=== PATIENT | female | born 1970 | race Caucasian/White ===

== ENCOUNTER 2016-02-22 11:34 | Emergency (ER) | payer MEDICAID ==
[2016-02-22 11:49] VITALS: TEMP 98.5; BMI 31.0
[2016-02-22 12:23] LABS: AUTOMATED BASOPHIL 0.5 % (0-2); AUTOMATED EOSINOPHIL 1.1 % (0-5); AUTOMATED LYMPH 20.1 % (17-44); AUTOMATED MONOCYTE 7.1 % (3-10); AUTOMATED NEUTROPHIL 71.2 % (45-76); MPV 7.9 fL (7.4-10.4)
[2016-02-22 12:35] LABS: LEUKOCYTES/URINE NEG (NEGATIVE); NITRITE/URINE NEG (NEGATIVE); URINE OCCULT BLOOD 1+ (NEG/TRACE); WBC/URINE 0-2 (0-5)
[2016-02-22] MEDS ORDERED: KETOROLAC TROMETHAMINE 10 MG TAB PO ONE (12:36)
[2016-02-22 12:37] LABS: BLOOD UREA NITROGEN 13 MG/DL (7-17); CALCIUM 9.2 MG/DL (8.4-10.2); CALCULATED OSMOLALITY 277 MOs/Kg (270-290); CHLORIDE 108 mEq/L (98-107); GLUCOSE 94 MG/DL (70-99); SODIUM LEVEL 144 mEq/L (137-146); TOTAL PROTEIN 7.7 G/DL (6.3-8.2)
--- NOTE | 2016-02-22 12:40 | EDPRACDOC ---
- General Information Chief Complaint: Abdominal Pain Stated Complaint: RLQ ABD PAIN Time Seen by Provider: 02/22/16 12:18 Information Source: Patient Mode Of Arrival: Car Home Medications: Home Medications Calcium Carbonate [Calcium] 600 mg PO DAILY 02/22/16 Cyanocobalamin (Vitamin B-12) [Vitamin B-12 (cyanocobalamin)] 1,000 mcg SL DAILY 02/22/16 Ergocalciferol (Vitamin D2) [Vitamin D] 50,000 units PO TU 02/22/16 Hydrocodone Bit/Acetaminophen [Hydrocodon-Acetaminophen 5-325] 1 tab PO Q6 PRN # 10 tab 02/22/16 Ketorolac Tromethamine [Toradol] 10 mg PO Q6H PRN #20 tab 02/22/16 Ondansetron [Zofran Odt] 4 mg PO TID PRN #10 tab.rapdis 02/22/16 Allergies/Adverse Reactions: Allergies Allergy/AdvReac Type Severity Reaction Status Date / Time oxycodone HCl Allergy Nausea/Vomi Verified 08/09/13 07:34 [From OxyContin] ting - History of Present Illness Onset: 4 days HPI: C/o constant RLQ pain with nausea x 4 days with 12 days of menstrual bleeding ( longer than usual), which started heavier than usual and 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 Denies Vaginal sx, change in urine, BM, cp, sob, fever. Med hx = ovarian cyst in her teens. Surgical hx = BTL, csection, back surgery. Sexually active, 1 partner. Pain Location: Reports: RLQ Pain Context: Reports: Spontaneous Pain Severity: Severe Pain Quality: Reports: Sharp Pain Radiation: Reports: No Radiation Last Menstrual Period: 12 days ago - continues : No Adult Abdominal History: Denies: Abdominal Surgery Female Abdominal History: Reports: Abdominal Surgery (c section, BTL) Modifying Factors: improves with: Nothing Female Associated Signs & Symptoms: Reports: Nausea, Vaginal Bleeding Oral Intake: Decreased Urinary Output: Normal ED Past Medical History - History Reviewed Yes Nurses notes reviewed and agree except as marked - Patient Medical History Cardiac History: Reports: Hypertension Psychological History: Denies: Depression Surgical History: Reports: Other (BACK, CSXN) - Social Medical History Smoking Status: Heavy tobacco smoker (5 or more cigarettes/day or daily pipe/ cigar) EDM Review of Systems - Review of Systems ROS Negative Except as Marked: Yes All systems reviewed and were negative except as marked Gastrointestinal: Nausea, Pain Genitourinary: Vaginal Bleeding - Physical Exam Constitutional: Alert Oriented to: Time, Person, Place Last recorded Vital Signs: Last Vital Signs Temp 98.5 F 02/22/16 11:45 Pulse 88 02/22/16 16:07 Resp 20 02/22/16 16:07 BP 154/92 02/22/16 16:07 Pulse Ox 97 02/22/16 16:07 Oxygen Pulse Oxygen Saturation 97 O2 Device Room Air Oxygen Flow Rate Fraction of Inspired Oxygen ( FIO2) - HEENT Head: Normal Eye Exam: negative: Conjunctival Injection, Scleral Icterus Oropharynx: negative: Drooling TMJ: Normal Nose: No Symptoms Reported Neck: Normal - Respiratory/Cardiovascular Respiratory: Normal - CTA Cardiovascular: Normal - GI Auscultation: Normal Palpation: Normal Tenderness: Moderate, RLQ Newby's Sign: Negative - Bladder: Normal External: Normal Vagina: Blood, Discharge Cervix: Blood, Discharge Uterus: Normal size Adnexa: Right: Tender (5/10) - Musculoskeletal Back: Normal Extremities: Normal - Integumentary Skin: Normal - Neurologic Mood Description: Normal Thought: Coherent - Results 02/22/16 11:51 02/22/16 11:51 WBC 10.8 xk/uL (3.8-10.8) 02/22/16 11:51 RBC 4.28 xM/uL (4.20-5.40) 02/22/16 11:51 Hgb 14.4 g/dL (12.0-16.0) 02/22/16 11:51 Hct 41.5 % (36-47) 02/22/16 11:51 MCV 97 fL (81-99) 02/22/16 11:51 MCH 33.5 pg (27-32) H 02/22/16 11:51 MCHC 34.6 g/dl (33-36) 02/22/16 11:51 RDW 12.7 % (11.5-14.5) 02/22/16 11:51 Plt Count 270 xk/uL (130-400) 02/22/16 11:51 MPV 7.9 fL (7.4-10.4) 02/22/16 11:51 Neut % (Auto) 71.2 % (45-76) 02/22/16 11:51 Lymph % (Auto) 20.1 % (17-44) 02/22/16 11:51 [place] % (Auto) 7.1 % (3-10) 02/22/16 11:51 Eos % (Auto) 1.1 % (0-5) 02/22/16 11:51 Baso % (Auto) 0.5 % (0-2) 02/22/16 11:51 Absolute Neuts (auto) 7.67 xk/uL (1.7-8.2) 02/22/16 11:51 Absolute Lymphs (auto) 2.16 xk/uL (0.65-4.75) 02/22/16 11:51 Sodium 144 mEq/L (137-146) 02/22/16 11:51 Potassium 4.3 mEq/L (3.5-5.1) 02/22/16 11:51 Chloride 108 mEq/L (98-107) H 02/22/16 11:51 Carbon Dioxide 25 mMOL/L (22-33) 02/22/16 11:51 Anion Gap 15 mEq/L (8-16) 02/22/16 11:51 BUN 13 MG/DL (7-17) 02/22/16 11:51 Creatinine 0.90 MG/DL (0.52-1.04) 02/22/16 11:51 Estimated GFR (MDRD) > 60 mL/min (>=60) 02/22/16 11:51 Glucose 94 MG/DL (70-99) 02/22/16 11:51 Calculated Osmolality 277 MOs/Kg (270-290) 02/22/16 11:51 Calcium 9.2 MG/DL (8.4-10.2) 02/22/16 11:51 Total Bilirubin 0.5 MG/DL (0.2-1.3) 02/22/16 11:51 AST 21 IU/L (14-36) 02/22/16 11:51 ALT 32 IU/L (9-52) 02/22/16 11:51 Alkaline Phosphatase 86 IU/L (38-126) 02/22/16 11:51 Total Protein 7.7 G/DL (6.3-8.2) 02/22/16 11:51 Albumin 4.4 G/DL (3.5-5.0) 02/22/16 11:51 Urine Color Yellow 02/22/16 12:20 Urine Clarity Clear 02/22/16 12:20 Urine pH 6.0 (5.0-8.0) 02/22/16 12:20 Ur Specific [place] 1.025 (1.003-1.035) 02/22/16 12:20 Urine Protein Neg (NEG/TRACE) 02/22/16 12:20 Urine Glucose (UA) Neg (NEGATIVE) 02/22/16 12:20 Urine Ketones Neg (NEGATIVE) 02/22/16 12:20 Urine Occult Blood 1+ (NEG/TRACE) H 02/22/16 12:20 Urine Nitrite Neg (NEGATIVE) 02/22/16 12:20 Urine Bilirubin Neg (NEGATIVE) 02/22/16 12:20 Urine Urobilinogen <2.0 MG/DL (0-1) 02/22/16 12:20 Ur Leukocyte Esterase Neg (NEGATIVE) 02/22/16 12:20 Urine RBC 2-5 (0-5) 02/22/16 12:20 Urine WBC 0-2 (0-5) 02/22/16 12:20 Ur Epithelial Cells 1+ 02/22/16 12:20 Urine Bacteria Few (NEG/FEW) 02/22/16 12:20 Urine Mucus Occ (NEG/OCC) 02/22/16 12:20 Urine Test Neg (NEGATIVE) 02/22/16 12:20 Microbiology 02/22/16 13:26 SULY Preparation - Final Vaginal 02/22/16 13:26 Trichomonas Wet Mount - Final Vaginal Lab Results 02/22/16 02/22/16 02/22/16 12:20 12:20 11:51 WBC 10.8 RBC 4.28 Hgb 14.4 Hct 41.5 MCV 97 MCH 33.5 H MCHC 34.6 RDW 12.7 Plt Count 270 MPV 7.9 Neut % (Auto) 71.2 Lymph % (Auto) 20.1 [place] % (Auto) 7.1 Eos % (Auto) 1.1 Baso % (Auto) 0.5 Absolute Neuts (auto) 7.67 Absolute Lymphs (auto) 2.16 Sodium Potassium Chloride Carbon Dioxide Anion Gap BUN Creatinine Estimated GFR (MDRD) Glucose Calculated Osmolality Calcium Total Bilirubin AST ALT Alkaline Phosphatase Total Protein Albumin Urine Color Yellow Urine Clarity Clear Urine pH 6.0 Ur Specific [place] 1.025 Urine Protein Neg Urine Glucose (UA) Neg Urine Ketones Neg Urine Occult Blood 1+ H Urine Nitrite Neg Urine Bilirubin Neg Urine Urobilinogen <2.0 Ur Leukocyte Esterase Neg Urine RBC 2-5 Urine WBC 0-2 Ur Epithelial Cells 1+ Urine Bacteria Few Urine Mucus Occ Urine Test Neg 02/22/16 11:51 WBC RBC Hgb Hct MCV MCH MCHC RDW Plt Count MPV Neut % (Auto) Lymph % (Auto) [place] % (Auto) Eos % (Auto) Baso % (Auto) Absolute Neuts (auto) Absolute Lymphs (auto) Sodium 144 Potassium 4.3 Chloride 108 H Carbon Dioxide 25 Anion Gap 15 BUN 13 Creatinine 0.90 Estimated GFR (MDRD) > 60 Glucose 94 Calculated Osmolality 277 Calcium 9.2 Total Bilirubin 0.5 AST 21 ALT 32 Alkaline Phosphatase 86 Total Protein 7.7 Albumin 4.4 Urine Color Urine Clarity Urine pH Ur Specific [place] Urine Protein Urine Glucose (UA) Urine Ketones Urine Occult Blood Urine Nitrite Urine Bilirubin Urine Urobilinogen Ur Leukocyte Esterase Urine RBC Urine WBC Ur Epithelial Cells Urine Bacteria Urine Mucus Urine Test - Diagnostic Imaging Abdomen Image interpreted by: Radiologist 02/22/16 14:47 EXAM: CT ABDOMEN AND PELVIS WITH CONTRAST TECHNIQUE: Multidetector CT imaging of the abdomen and pelvis was performed using the standard protocol following bolus administration of intravenous contrast. CONTRAST: 100 ml Isovue 370. COMPARISON: Abdominal pelvic CT 02/21/2014. FINDINGS: Lower chest: Clear lung bases. No significant pleural or pericardial effusion. Hepatobiliary: 10 mm cystic lesion in the medial segment of the left lobe on image number 19 is unchanged. The other cystic lesion seen in the lateral segment on the prior study appears smaller. No suspicious hepatic findings. No evidence of gallstones, gallbladder wall thickening or biliary dilatation. Pancreas: There are stable small calcifications within the pancreatic head, likely postinflammatory. The pancreas otherwise appears unremarkable, without surrounding inflammation or ductal dilatation. Spleen: Normal in size without focal abnormality. Adrenals/Urinary Tract: Both adrenal glands appear normal. There is stable cortical scarring in the upper pole of the right kidney. There is a tiny nonobstructing upper pole renal calculus and adjacent cyst. The left kidney appears normal. There is no residual hydronephrosis or ureteral calculus. A small amount of air is present within the lumen of the urinary bladder. There is no bladder wall thickening or surrounding inflammatory change. Stomach/Bowel: No evidence of bowel wall thickening, distention or surrounding inflammatory change. There is high-density material within the lumen of the appendix which may reflect small appendicoliths. There is no appendiceal distention, wall thickening or surrounding inflammation. Vascular/Lymphatic: There are no enlarged abdominal or pelvic lymph nodes. No significant vascular findings are present. Reproductive: There are small collapsing ovarian follicles bilaterally. No suspicious adnexal findings. The uterus appears unremarkable. Other: Stable small umbilical hernia containing only fat. A small amount of free pelvic fluid is within physiologic limits. Musculoskeletal: No acute or significant osseous findings. Stable postsurgical findings status post L4-5 fusion. IMPRESSION: 1. No acute findings or explanation for the patient's symptoms. 2. High density within the appendiceal lumen may reflect small appendicoliths, although there is no appendiceal distention, wall thickening or surrounding inflammation to suggest appendicitis. 3. Stable cortical scarring in the upper pole of the right kidney, suggesting chronic reflux. No evidence of ureteral obstruction or surrounding inflammation. 4. Nonspecific air in the bladder lumen, presumably from recent instrumentation/catheterization. Correlate clinically. Without such recent instrumentation, this could indicate the presence of a fistula. Electronically Signed By: Demetrius Mcguire M.D. On: 02/22/2016 14:25 - Additional Information pt states she has taken hydrocodone without issue Decision Time to Discharge: 14:49 - Departure Disposition: Home Condition: Stable Final Diagnosis: Cervicitis Instructions: Acute Abdominal Pain (ED), Cervicitis (ED) Education/Counseling Given To: Patient Education/Counseling Given Regarding: Diagnosis, Treatment, Prognosis, Follow Up Referrals: Darci Hutchinson MD [Primary Care Provider] - One Week Prescriptions: Hydrocodone Bit/Acetaminophen [Hydrocodon-Acetaminophen 5-325] 1 tab PO Q6 PRN # 10 tab PRN Reason: Pain Ketorolac Tromethamine [Toradol] 10 mg PO Q6H PRN #20 tab PRN Reason: Pain Ondansetron [Zofran Odt] 4 mg PO TID PRN #10 tab.rapdis PRN Reason: Nausea/Vomiting Additional Instructions: Follow up with [facility] for right lower abdominal pain. . Return to ED for any new or worsening symptoms.
[2016-02-22] MEDS ORDERED: NS 1,000 ML IV ONE (12:46)
[2016-02-22] MEDS ORDERED: ONDANSETRON HCL 4 MG/2 ML VIAL IV ONE (13:28)
[2016-02-22] MEDS ORDERED: KETOROLAC TROMETH 30 MG/ML VIAL IV ONE (13:28)
[2016-02-22] MEDS ORDERED: Pharmacy Review for Metformin - IV Contrast Given SCH (14:00)
--- NOTE | 2016-02-22 14:28 | DIRPT ---
CLINICAL DATA: 45-year-old with right lower quadrant abdominal pain and fever for 3 or 4 days. EXAM: CT ABDOMEN AND PELVIS WITH CONTRAST TECHNIQUE: Multidetector CT imaging of the abdomen and pelvis was performed using the standard protocol following bolus administration of intravenous contrast. CONTRAST: 100 ml Isovue 370. COMPARISON: Abdominal pelvic CT 02/21/2014. FINDINGS: Lower chest: Clear lung bases. No significant pleural or pericardial effusion. Hepatobiliary: 10 mm cystic lesion in the medial segment of the left lobe on image number 19 is unchanged. The other cystic lesion seen in the lateral segment on the prior study appears smaller. No suspicious hepatic findings. No evidence of gallstones, gallbladder wall thickening or biliary dilatation. Pancreas: There are stable small calcifications within the pancreatic head, likely postinflammatory. The pancreas otherwise appears unremarkable, without surrounding inflammation or ductal dilatation. Spleen: Normal in size without focal abnormality. Adrenals/Urinary Tract: Both adrenal glands appear normal. There is stable cortical scarring in the upper pole of the right kidney. There is a tiny nonobstructing upper pole renal calculus and adjacent cyst. The left kidney appears normal. There is no residual hydronephrosis or ureteral calculus. A small amount of air is present within the lumen of the urinary bladder. There is no bladder wall thickening or surrounding inflammatory change. Stomach/Bowel: No evidence of bowel wall thickening, distention or surrounding inflammatory change. There is high-density material within the lumen of the appendix which may reflect small appendicoliths. There is no appendiceal distention, wall thickening or surrounding inflammation. Vascular/Lymphatic: There are no enlarged abdominal or pelvic lymph nodes. No significant vascular findings are present. Reproductive: There are small collapsing ovarian follicles bilaterally. No suspicious adnexal findings. The uterus appears unremarkable. Other: Stable small umbilical hernia containing only fat. A small amount of free pelvic fluid is within physiologic limits. Musculoskeletal: No acute or significant osseous findings. Stable postsurgical findings status post L4-5 fusion. IMPRESSION: 1. No acute findings or explanation for the patient's symptoms. 2. High density within the appendiceal lumen may reflect small appendicoliths, although there is no appendiceal distention, wall thickening or surrounding inflammation to suggest appendicitis. 3. Stable cortical scarring in the upper pole of the right kidney, suggesting chronic reflux. No evidence of ureteral obstruction or surrounding inflammation. 4. Nonspecific air in the bladder lumen, presumably from recent instrumentation/catheterization. Correlate clinically. Without such recent instrumentation, this could indicate the presence of a fistula. Electronically Signed By: Demetrius Mcguire M.D. On: 02/22/2016 14:25
[2016-02-22] MEDS ORDERED: AZITHROMYCIN 250 MG TAB PO ONE (14:48)
[2016-02-22] MEDS ORDERED: CEFTRIAXONE 250 MG in D5W 100 ML IV ONE (14:48)
[2016-02-22] MEDS ORDERED: HYDROCODONE 5 MG/ACETAMIN 325 MG TAB PO ONE (14:56)
[2016-02-22 16:09] VITALS: BP 154/92; PULSE 88
== END 2016-02-22 16:05 | disposition home or self-care (01) ==
LOC: ED 11:34
DX: N72 Inflammatory disease of cervix uteri (principal)
CPT/HCPCS: 36415; 74177; 80053; 81001; 81025; 85025; 87210; 87220; 87491; 87591; 96361; 96365; 96375; 99284; A9698; J0696; J1885; J3490; J7060; J2405